=== PATIENT | male | born 1960 | race Caucasian/White ===

== ENCOUNTER 2020-10-16 15:40 | Observation (INO) ==
[2020-10-16] MEDS ORDERED: Aspirin 81 MG TAB.CHEW PO ONE (16:08)
[2020-10-16] MEDS: Nitroglycerin 0.4 MG TAB.SUBL SL SCH ×3 (16:21→19:49)
[2020-10-16 16:22] LABS: Basophils # 0.1 K/mcL (0.0-0.2); Basophils % 0.9 %; Eosinophils % 0.5 %; Hematocrit 43.4 % (37.5-50.1); Hemoglobin 14.1 g/dL (12.9-16.9); Immature Granulocytes % 0.5 % (0-4); Lymphocytes # 1.1 K/mcL (0.6-4.6); Lymphocytes % 16.7 %; Mean Corpuscular HGB Conc 32.5 g/dL (31.6-35.5); Mean Corpuscular Volume 92.3 fL (83.0-100.0); Mean Platelet Volume 10.5 fL (9.4-12.4); Monocytes # 0.3 K/mcL (0.0-1.3); Monocytes % 5.1 %; Neutrophils # 4.9 K/mcL (1.6-8.9); Platelet Count 159 K/mcL (140-400); Red Cell Distribution Width 13.5 % (11.5-14.5); Segmented Neutrophils % 76.3 %; White Blood Count 6.5 K/mcL (4.3-11.1)
[2020-10-16 16:34] LABS: INR 1.1; Prothrombin Time 13.1 Seconds (9.4-12.1)
[2020-10-16 16:41] LABS: BUN/Creatinine Ratio 22 (6-26); Blood Urea Nitrogen 28 mg/dL (8-23); Calcium 10.2 mg/dL (8.6-10.3); Carbon Dioxide 28 mEq/L (23-29); Chloride 100 mEq/L (98-107); Glucose 189 mg/dL (70-105); Osmolality,Calculated 297 (280-300); Sodium 138 mEq/L (136-145); Troponin I < 0.03 ng/mL (< 0.04); eGFR For African Americans > 60 (> 60); eGFR For Non-African Americans 59 (> 60)
[2020-10-16] MEDS ORDERED: GI Cocktail 40 ML EACH PO ONE (17:05)
[2020-10-16] MEDS ORDERED: Naloxone 0.4 MG/ML INJ IVP PRN (18:22)
[2020-10-16] MEDS ORDERED: Ondansetron 4 MG/2 ML VIAL IVP PRN (18:22)
[2020-10-16] MEDS ORDERED: Melatonin 3 MG TABLET PO PRN (18:22)
[2020-10-16] MEDS: *HR* OxyCODONE/APAP 7.5/325 TABLET PO PRN (20:16)
[2020-10-16] MEDS: Gabapentin 400 MG CAPSULE PO SCH (20:16)
[2020-10-17] MEDS ORDERED: Acetaminophen 325 MG TABLET PO ONE (04:23)
[2020-10-17 07:12] VITALS: BP 173/89
[2020-10-17] MEDS ORDERED: Regadenoson 0.4 MG/5 ML SYRINGE IVP ONE (07:22)
[2020-10-17 07:35] LABS: Hematocrit 42.8 % (37.5-50.1); Hemoglobin 13.7 g/dL (12.9-16.9); Mean Corpuscular Volume 93.9 fL (83.0-100.0); Mean Platelet Volume 10.9 fL (9.4-12.4); Platelet Count 152 K/mcL (140-400); Red Blood Count 4.56 M/mcL (4.19-5.50); Red Cell Distribution Width 13.7 % (11.5-14.5); White Blood Count 4.9 K/mcL (4.3-11.1)
[2020-10-17 07:49] LABS: BUN/Creatinine Ratio 23 (6-26); Blood Urea Nitrogen 26 mg/dL (8-23); Calcium 9.4 mg/dL (8.6-10.3); Carbon Dioxide 25 mEq/L (23-29); Chloride 101 mEq/L (98-107); Chol/HDL Ratio 3.7 (0-4.9); Cholesterol 160 mg/dL (< 200); Glucose 135 mg/dL (70-105); HDL Cholesterol 43 mg/dL (40-59); LDL Cholesterol,Calculated 94 mg/dL (< 100); Magnesium 1.8 mg/dL (1.6-2.6); Osmolality,Calculated 291 (280-300); Potassium 3.9 mEq/L (3.5-5.1); Sodium 137 mEq/L (136-145); Triglycerides 116 mg/dL (< 150); eGFR For African Americans > 60 (> 60); eGFR For Non-African Americans > 60 (> 60)
[2020-10-17] MEDS ORDERED: *HR* HYDROcodone/Acet 10/325 mg TABLET PO PRN (08:10)
[2020-10-17] MEDS ORDERED: diazePAM 5 MG TABLET PO ONE (08:37)
[2020-10-17] MEDS: *HR* OxyCODONE/APAP 7.5/325 TABLET PO PRN (08:46)
[2020-10-17] MEDS ORDERED: amLODIPine 5 MG TABLET PO SCH (09:00)
[2020-10-17] MEDS ORDERED: polyethylene glycoL 3350 17 GM POWD.PACK PO SCH (09:00)
[2020-10-17] MEDS ORDERED: Aspirin Enteric Coated 81 MG Tablet PO SCH (09:00)
[2020-10-17] MEDS ORDERED: lisinopriL 20 MG TABLET PO SCH (09:00)
[2020-10-17] MEDS ORDERED: NON-FORMULARY MEDICATION 1 EACH EACH (Amlodipine Besylate/Benazepril [Lotrel 10-40 Mg Caps PO SCH (09:00)
[2020-10-17] MEDS: Gabapentin 400 MG CAPSULE PO SCH (12:20)
[2020-10-17] MEDS ORDERED: Ibuprofen 400 MG TABLET PO PRN (12:26)
[2020-10-17] MEDS ORDERED: Celecoxib 200 MG CAPSULE PO SCH (12:30)
== END 2020-10-17 14:50 | disposition home or self-care (01) ==
LOC: EMEROOARM 15:40 → 3BNU 15:40 → SUATTDRO 17:38 → 3BNU 18:38
PROVIDERS: ADMIT Internal Medicine; ATTEND Internal Medicine

== ENCOUNTER 2020-12-18 12:27 | Inpatient (IN) ==
[2020-12-18] MEDS ORDERED: 0.9 % Sodium Chloride 500 ML IVC ONE (13:19)
[2020-12-18] MEDS ORDERED: Aspirin 81 MG TAB.CHEW PO ONE (13:32)
[2020-12-18 13:54] LABS: Basophils # 0.1 K/mcL (0.0-0.2); Basophils % 1.2 %; Eosinophils # 0.1 K/mcL (0.0-0.6); Eosinophils % 1.3 %; Hematocrit 38.7 % (37.5-50.1); Hemoglobin 12.6 g/dL (12.9-16.9); Immature Granulocytes % 0.8 % (0-4); Lymphocytes # 0.8 K/mcL (0.6-4.6); Lymphocytes % 14.6 %; Mean Corpuscular HGB Conc 32.6 g/dL (31.6-35.5); Mean Corpuscular Hemoglobin 30.5 pg (28.0-33.3); Mean Corpuscular Volume 93.7 fL (83.0-100.0); Mean Platelet Volume 10.7 fL (9.4-12.4); Monocytes # 0.3 K/mcL (0.0-1.3); Platelet Count 158 K/mcL (140-400); Red Blood Count 4.13 M/mcL (4.19-5.50); Red Cell Distribution Width 14.6 % (11.5-14.5); Segmented Neutrophils % 77.1 %; White Blood Count 5.2 K/mcL (4.3-11.1)
[2020-12-18] MEDS: Nitroglycerin 0.4 MG TAB.SUBL SL SCH ×3 (14:03→19:47)
[2020-12-18 14:23] LABS: INR 1.1; Prothrombin Time 12.5 Seconds (9.4-12.1)
[2020-12-18 14:25] LABS: Activated Partial Thrombo Time 29.2 Seconds (26.0-36.0)
[2020-12-18 14:27] LABS: BUN/Creatinine Ratio 23 (6-26); Blood Urea Nitrogen 29 mg/dL (8-23); Calcium 10.1 mg/dL (8.6-10.3); Carbon Dioxide 26 mEq/L (23-29); Chloride 103 mEq/L (98-107); Glucose 144 mg/dL (70-105); Osmolality,Calculated 292 (280-300); Potassium 4.4 mEq/L (3.5-5.1); Sodium 137 mEq/L (136-145); eGFR For African Americans > 60 (> 60); eGFR For Non-African Americans 59 (> 60)
[2020-12-18 14:35] LABS: Troponin I < 0.03 ng/mL (< 0.04)
[2020-12-18] MEDS ORDERED: Nitroglycerin 1,000 MCG/10 ML VIAL IV ONE (15:01)
[2020-12-18] MEDS ORDERED: Melatonin 3 MG TABLET PO PRN (15:44)
[2020-12-18] MEDS ORDERED: Naloxone 0.4 MG/ML INJ IVP PRN (15:44)
[2020-12-18] MEDS ORDERED: Ondansetron 4 MG/2 ML VIAL IVP PRN (15:44)
[2020-12-18] MEDS ORDERED: Dextrose Gel 15 GM/37.5 ML TUBE PO PRN ×2 (15:48)
[2020-12-18] MEDS ORDERED: D5% in Water 1,000 ML IVC PRN (15:48)
[2020-12-18] MEDS ORDERED: *HR* Dextrose 50 % in Water (Vial) 50 ML VIAL IVP PRN (15:48)
[2020-12-18] MEDS ORDERED: *HR* Heparin 5,000 UNIT/ML VIAL IVP PRN ×2 (15:50)
[2020-12-18] MEDS ORDERED: *HR* Heparin 5,000 UNIT/ML VIAL IVP ONE (15:50)
[2020-12-18] MEDS ORDERED: carvediloL 6.25 MG TABLET PO SCH (17:00)
[2020-12-18] MEDS ORDERED: Fluticasone Propionate Nasal 50 MCG/SPRAY BOTTLE NS PRN (18:18)
[2020-12-18 19:20] LABS: Heparin anti-factor XA UFH 0.05 IU/mL (0.30-0.70); INR 1.1; Prothrombin Time 13.1 Seconds (9.4-12.1)
[2020-12-18] MEDS: Heparin 25,000UNIT/250ML 1/2NS 25,000 UNIT/250 ML IV.SOLN IVC SCH (19:33)
[2020-12-18] MEDS: *HR* HYDROcodone/Acet 5/325 mg TABLET PO PRN (19:41)
[2020-12-18] MEDS: Gabapentin 400 MG CAPSULE PO SCH (19:41)
[2020-12-18] MEDS: Insulin LISPRO 300 UNITS/3 ML VIAL SUBQ SCH (19:46)
[2020-12-18] MEDS: Patient Taking Own Medication 1 EACH IT SCH (21:54)
[2020-12-19 01:30] LABS: Basophils # 0.1 K/mcL (0.0-0.2); Basophils % 0.7 %; Eosinophils # 0.1 K/mcL (0.0-0.6); Eosinophils % 0.9 %; Hematocrit 38.2 % (37.5-50.1); Hemoglobin 12.3 g/dL (12.9-16.9); Immature Granulocytes % 0.4 % (0-4); Lymphocytes # 1.6 K/mcL (0.6-4.6); Lymphocytes % 20.7 %; Mean Corpuscular HGB Conc 32.2 g/dL (31.6-35.5); Mean Corpuscular Hemoglobin 30.5 pg (28.0-33.3); Mean Corpuscular Volume 94.8 fL (83.0-100.0); Mean Platelet Volume 10.5 fL (9.4-12.4); Monocytes # 0.7 K/mcL (0.0-1.3); Neutrophils # 5.2 K/mcL (1.6-8.9); Platelet Count 170 K/mcL (140-400); Red Blood Count 4.03 M/mcL (4.19-5.50); Red Cell Distribution Width 14.5 % (11.5-14.5); Segmented Neutrophils % 68.3 %; White Blood Count 7.6 K/mcL (4.3-11.1)
[2020-12-19 01:48] LABS: Alanine Aminotransferase 38 Units/L (7-52); Albumin 4.7 g/dL (3.5-5.7); Albumin/Globulin Ratio 1.7 (1.1-2.2); Alkaline Phosphatase 55 Units/L (34-104); Aspartate Amino Transferase 27 Units/L (13-39); BUN/Creatinine Ratio 21 (6-26); Bilirubin,Total 0.5 mg/dL (0.3-1.0); Blood Urea Nitrogen 26 mg/dL (8-23); Calcium 9.6 mg/dL (8.6-10.3); Carbon Dioxide 25 mEq/L (23-29); Chloride 103 mEq/L (98-107); Chol/HDL Ratio 3.3 (0-4.9); Cholesterol 143 mg/dL (< 200); Globulin 2.7 g/dL (2.4-3.5); Glucose 129 mg/dL (70-105); HDL Cholesterol 43 mg/dL (40-59); LDL Cholesterol,Calculated 63 mg/dL (< 100); Magnesium 1.7 mg/dL (1.6-2.6); Osmolality,Calculated 300 (280-300); Phosphorous 3.7 mg/dL (2.7-4.5); Potassium 3.8 mEq/L (3.5-5.1); Sodium 142 mEq/L (136-145); Total Protein 7.4 g/dL (6.4-8.9); Triglycerides 187 mg/dL (< 150); eGFR For African Americans > 60 (> 60); eGFR For Non-African Americans > 60 (> 60)
[2020-12-19 01:53] LABS: Iron 102 mcg/dL (65-175)
[2020-12-19 02:08] LABS: Ferritin 87 ng/mL (20-250)
[2020-12-19 02:14] LABS: Folate 18.3 ng/mL (3.0-16.0)
[2020-12-19 04:07] LABS: % Iron Saturation 26 % (20-55); Transferrin 276 mg/dL (203-362)
[2020-12-19] MEDS: Insulin LISPRO 300 UNITS/3 ML VIAL SUBQ SCH ×3 (07:52→17:13)
[2020-12-19] MEDS ORDERED: carvediloL 6.25 MG TABLET PO SCH (08:00)
[2020-12-19] MEDS: Gabapentin 400 MG CAPSULE PO SCH ×3 (12:03→20:08)
[2020-12-19] MEDS: Aspirin 81 MG TAB.CHEW PO SCH (12:03)
[2020-12-19] MEDS: Isosorbide MONOnitrate (24 HR) 30 MG TAB.ER.24H PO SCH (12:06)
[2020-12-19] MEDS: Patient Taking Own Medication 1 EACH IT SCH (17:13)
[2020-12-19] MEDS: carvediloL 6.25 MG TABLET PO SCH (17:14)
[2020-12-19] MEDS: Heparin 25,000UNIT/250ML 1/2NS 25,000 UNIT/250 ML IV.SOLN IVC SCH (21:00)
[2020-12-19] MEDS: *HR* HYDROcodone/Acet 5/325 mg TABLET PO PRN (22:22)
[2020-12-20] MEDS: Nitroglycerin 0.4 MG TAB.SUBL SL PRN ×2 (02:32→02:39)
[2020-12-20 02:40] LABS: Basophils # 0.1 K/mcL (0.0-0.2); Basophils % 0.9 %; Eosinophils # 0.1 K/mcL (0.0-0.6); Eosinophils % 1.5 %; Hematocrit 37.7 % (37.5-50.1); Hemoglobin 12.6 g/dL (12.9-16.9); Immature Granulocytes % 0.5 % (0-4); Lymphocytes # 1.4 K/mcL (0.6-4.6); Lymphocytes % 21.1 %; Mean Corpuscular HGB Conc 33.4 g/dL (31.6-35.5); Mean Corpuscular Hemoglobin 31.5 pg (28.0-33.3); Mean Corpuscular Volume 94.3 fL (83.0-100.0); Mean Platelet Volume 10.6 fL (9.4-12.4); Monocytes # 0.5 K/mcL (0.0-1.3); Monocytes % 6.9 %; Neutrophils # 4.6 K/mcL (1.6-8.9); Platelet Count 173 K/mcL (140-400); Red Cell Distribution Width 14.6 % (11.5-14.5); Segmented Neutrophils % 69.1 %; White Blood Count 6.7 K/mcL (4.3-11.1)
[2020-12-20] MEDS ORDERED: Morphine Sulfate 2 MG/ML SYRINGE IVP ONE (02:47)
[2020-12-20 02:56] LABS: BUN/Creatinine Ratio 21 (6-26); Blood Urea Nitrogen 25 mg/dL (8-23); Calcium 9.5 mg/dL (8.6-10.3); Carbon Dioxide 28 mEq/L (23-29); Chloride 101 mEq/L (98-107); Glucose 121 mg/dL (70-105); Osmolality,Calculated 294 (280-300); Sodium 139 mEq/L (136-145); eGFR For African Americans > 60 (> 60); eGFR For Non-African Americans > 60 (> 60)
[2020-12-20 03:11] LABS: Troponin I < 0.03 ng/mL (< 0.04)
[2020-12-20] MEDS ORDERED: Perflutren Lipid Microsphere 1.3 ML in 0.9 % Sodium Chloride 8.7 ML IVP PRN (07:07)
[2020-12-20] MEDS: Insulin LISPRO 300 UNITS/3 ML VIAL SUBQ SCH ×3 (07:41→16:59)
[2020-12-20] MEDS: Celecoxib 200 MG CAPSULE PO SCH ×2 (09:41→21:11)
[2020-12-20] MEDS: Gabapentin 400 MG CAPSULE PO SCH ×3 (09:41→21:12)
[2020-12-20] MEDS: carvediloL 6.25 MG TABLET PO SCH ×2 (09:41→14:38)
[2020-12-20] MEDS: Isosorbide MONOnitrate (24 HR) 30 MG TAB.ER.24H PO SCH (09:41)
[2020-12-20] MEDS: polyethylene glycoL 3350 17 GM POWD.PACK PO PRN (09:42)
[2020-12-20] MEDS: Aspirin 81 MG TAB.CHEW PO SCH (09:42)
[2020-12-20] MEDS: *HR* OxyCODONE Immed Rel 5 MG TABLET PO PRN (14:32)
[2020-12-20] MEDS: Patient Taking Own Medication 1 EACH IT SCH (17:01)
[2020-12-20] MEDS: Acetaminophen 325 MG TABLET PO PRN (21:12)
[2020-12-20] MEDS: Heparin 25,000UNIT/250ML 1/2NS 25,000 UNIT/250 ML IV.SOLN IVC SCH (21:12)
[2020-12-21 04:40] LABS: Basophils % 0.6 %; Eosinophils # 0.1 K/mcL (0.0-0.6); Hematocrit 35.2 % (37.5-50.1); Hemoglobin 11.9 g/dL (12.9-16.9); Immature Granulocytes % 0.6 % (0-4); Lymphocytes # 1.7 K/mcL (0.6-4.6); Lymphocytes % 23.5 %; Mean Corpuscular HGB Conc 33.8 g/dL (31.6-35.5); Mean Corpuscular Hemoglobin 31.2 pg (28.0-33.3); Mean Corpuscular Volume 92.1 fL (83.0-100.0); Mean Platelet Volume 10.3 fL (9.4-12.4); Monocytes # 0.5 K/mcL (0.0-1.3); Monocytes % 7.3 %; Neutrophils # 4.7 K/mcL (1.6-8.9); Platelet Count 134 K/mcL (140-400); Red Blood Count 3.82 M/mcL (4.19-5.50); Red Cell Distribution Width 14.3 % (11.5-14.5)
[2020-12-21 05:01] LABS: BUN/Creatinine Ratio 18 (6-26); Blood Urea Nitrogen 25 mg/dL (8-23); Calcium 9.3 mg/dL (8.6-10.3); Carbon Dioxide 28 mEq/L (23-29); Chloride 103 mEq/L (98-107); Glucose 104 mg/dL (70-105); Osmolality,Calculated 291 (280-300); Potassium 3.9 mEq/L (3.5-5.1); Sodium 138 mEq/L (136-145); eGFR For African Americans > 60 (> 60); eGFR For Non-African Americans 53 (> 60)
[2020-12-21] MEDS: Insulin LISPRO 300 UNITS/3 ML VIAL SUBQ SCH ×3 (08:35→15:50)
[2020-12-21] MEDS: 0.9 % Sodium Chloride 1,000 ML IVC SCH ×2 (09:01→18:21)
[2020-12-21] MEDS: Celecoxib 200 MG CAPSULE PO SCH ×2 (09:02→19:54)
[2020-12-21] MEDS: Aspirin 81 MG TAB.CHEW PO SCH (09:02)
[2020-12-21] MEDS: Gabapentin 400 MG CAPSULE PO SCH ×3 (09:02→19:54)
[2020-12-21] MEDS: Isosorbide MONOnitrate (24 HR) 30 MG TAB.ER.24H PO SCH (09:04)
[2020-12-21] MEDS: carvediloL 6.25 MG TABLET PO SCH ×3 (09:04→22:54)
[2020-12-21] MEDS ORDERED: *HR* LORazepam 2 MG/ML VIAL IVP ONE ×2 (10:23→19:59)
[2020-12-21] MEDS ORDERED: *HR* FentaNYL (PF) 100 MCG/2 ML VIAL ONE (16:02)
[2020-12-21] MEDS ORDERED: 0.9 % Sodium Chloride 2,000 ML ONE (16:02)
[2020-12-21] MEDS ORDERED: *HR* Midazolam HCl 2 MG/2 ML VIAL ONE (16:02)
[2020-12-21] MEDS ORDERED: Heparin 1,000 UNITS/500 mL 500 ML ONE (16:02)
[2020-12-21] MEDS ORDERED: *HR* Heparin 10,000 UNIT/10 ML VIAL ONE (16:03)
[2020-12-21] MEDS ORDERED: ISOVUE-370 200 ML INFUS..BTL ONE (16:03)
[2020-12-21] MEDS ORDERED: Nitroglycerin 1,000 MCG/5 ML VIAL IV ONE (16:03)
[2020-12-21] MEDS: Patient Taking Own Medication 1 EACH IT SCH (16:20)
[2020-12-21] MEDS: *HR* Heparin 5,000 UNIT/ML VIAL SQ SCH (17:17)
[2020-12-21] MEDS: polyethylene glycoL 3350 17 GM POWD.PACK PO PRN (19:55)
[2020-12-21] MEDS: *HR* OxyCODONE Immed Rel 5 MG TABLET PO PRN (20:57)
[2020-12-21] MEDS: Acetaminophen 325 MG TABLET PO PRN (22:59)
[2020-12-22] MEDS: 0.9 % Sodium Chloride 1,000 ML IVC SCH ×3 (00:50→16:41)
[2020-12-22] MEDS: *HR* Heparin 5,000 UNIT/ML VIAL SQ SCH ×2 (04:50→16:30)
[2020-12-22 06:19] LABS: Basophils # 0.1 K/mcL (0.0-0.2); Basophils % 0.7 %; Eosinophils % 0.4 %; Hematocrit 37.7 % (37.5-50.1); Hemoglobin 12.3 g/dL (12.9-16.9); Immature Granulocytes % 1.1 % (0-4); Lymphocytes # 1.6 K/mcL (0.6-4.6); Lymphocytes % 22.6 %; Mean Corpuscular HGB Conc 32.6 g/dL (31.6-35.5); Mean Corpuscular Hemoglobin 30.4 pg (28.0-33.3); Mean Corpuscular Volume 93.3 fL (83.0-100.0); Mean Platelet Volume 10.8 fL (9.4-12.4); Monocytes # 0.4 K/mcL (0.0-1.3); Monocytes % 5.5 %; Neutrophils # 4.9 K/mcL (1.6-8.9); Platelet Count 146 K/mcL (140-400); Red Blood Count 4.04 M/mcL (4.19-5.50); Red Cell Distribution Width 14.1 % (11.5-14.5); Segmented Neutrophils % 69.7 %; White Blood Count 7.1 K/mcL (4.3-11.1)
[2020-12-22 06:24] LABS: BUN/Creatinine Ratio 17 (6-26); Blood Urea Nitrogen 23 mg/dL (8-23); Calcium 9.1 mg/dL (8.6-10.3); Carbon Dioxide 28 mEq/L (23-29); Chloride 102 mEq/L (98-107); Glucose 192 mg/dL (70-105); Osmolality,Calculated 295 (280-300); Potassium 3.6 mEq/L (3.5-5.1); Sodium 138 mEq/L (136-145); eGFR For African Americans > 60 (> 60); eGFR For Non-African Americans 53 (> 60)
[2020-12-22] MEDS: Gabapentin 400 MG CAPSULE PO SCH ×3 (08:00→20:51)
[2020-12-22] MEDS: carvediloL 6.25 MG TABLET PO SCH ×2 (08:00→16:28)
[2020-12-22] MEDS: Celecoxib 200 MG CAPSULE PO SCH ×2 (08:00→20:51)
[2020-12-22] MEDS: Isosorbide MONOnitrate (24 HR) 30 MG TAB.ER.24H PO SCH (08:00)
[2020-12-22] MEDS: Aspirin 81 MG TAB.CHEW PO SCH (08:00)
[2020-12-22] MEDS: Insulin LISPRO 300 UNITS/3 ML VIAL SUBQ SCH ×3 (08:03→16:32)
[2020-12-22] MEDS: amLODIPine 5 MG TABLET PO SCH (08:30)
[2020-12-22] MEDS ORDERED: 0.9 % Sodium Chloride 500 ML IVC SCH (09:15)
[2020-12-22] MEDS: Acetaminophen 325 MG TABLET PO PRN (12:23)
[2020-12-22 13:32] LABS: Estimated Average Glucose 128 mg/dl; Hemoglobin A1C 6.1 %
[2020-12-22 15:28] LABS: BUN/Creatinine Ratio 17 (6-26); Blood Urea Nitrogen 24 mg/dL (8-23); Calcium 9.4 mg/dL (8.6-10.3); Carbon Dioxide 30 mEq/L (23-29); Chloride 101 mEq/L (98-107); Glucose 131 mg/dL (70-105); Osmolality,Calculated 290 (280-300); Sodium 137 mEq/L (136-145); eGFR For African Americans > 60 (> 60); eGFR For Non-African Americans 52 (> 60)
[2020-12-22] MEDS ORDERED: 0.9 % Sodium Chloride 1,000 ML IVC SCH (16:15)
[2020-12-22] MEDS: Patient Taking Own Medication 1 EACH IT SCH (16:25)
[2020-12-22] MEDS: polyethylene glycoL 3350 17 GM POWD.PACK PO PRN (16:35)
[2020-12-22] MEDS: *HR* OxyCODONE Immed Rel 5 MG TABLET PO PRN (20:51)
[2020-12-23] MEDS: *HR* Heparin 5,000 UNIT/ML VIAL SQ SCH (06:00)
[2020-12-23 06:36] LABS: Hematocrit 37.9 % (37.5-50.1); Hemoglobin 12.7 g/dL (12.9-16.9); Mean Corpuscular HGB Conc 33.5 g/dL (31.6-35.5); Mean Corpuscular Hemoglobin 31.2 pg (28.0-33.3); Mean Corpuscular Volume 93.1 fL (83.0-100.0); Mean Platelet Volume 10.7 fL (9.4-12.4); Platelet Count 155 K/mcL (140-400); Red Blood Count 4.07 M/mcL (4.19-5.50); Red Cell Distribution Width 14.4 % (11.5-14.5)
[2020-12-23 06:51] LABS: BUN/Creatinine Ratio 17 (6-26); Blood Urea Nitrogen 21 mg/dL (8-23); Calcium 9.8 mg/dL (8.6-10.3); Carbon Dioxide 27 mEq/L (23-29); Chloride 103 mEq/L (98-107); Glucose 95 mg/dL (70-105); Osmolality,Calculated 291 (280-300); Sodium 139 mEq/L (136-145); eGFR For African Americans > 60 (> 60); eGFR For Non-African Americans > 60 (> 60)
[2020-12-23] MEDS: carvediloL 6.25 MG TABLET PO SCH (07:37)
[2020-12-23] MEDS: Isosorbide MONOnitrate (24 HR) 30 MG TAB.ER.24H PO SCH (07:37)
[2020-12-23] MEDS: Aspirin 81 MG TAB.CHEW PO SCH (07:37)
[2020-12-23] MEDS: Insulin LISPRO 300 UNITS/3 ML VIAL SUBQ SCH (07:37)
[2020-12-23] MEDS: Gabapentin 400 MG CAPSULE PO SCH (07:37)
[2020-12-23] MEDS: amLODIPine 5 MG TABLET PO SCH (07:37)
[2020-12-23] MEDS: Celecoxib 200 MG CAPSULE PO SCH (07:37)
[2020-12-23 10:24] VITALS: BP 151/80
== END 2020-12-23 10:54 | disposition home or self-care (01) | DRG 287 ==
LOC: SUATTDRO → 3BNU 12:27 → EMEROOARM 12:27 → SUATTDRO 16:34 → 3BNU 18:19 → SUATTDRO 12-20 13:02
PROVIDERS: ADMIT Internal Medicine; ATTEND Registered Nurse